=== PATIENT | male | born 1970 | race Caucasian/White ===

== ENCOUNTER 2019-07-20 15:58 | Outpatient (CLI) | payer BC, SELFPAY ==
--- NOTE | 2019-07-24 06:54 | ONC FU_ITS ---
Dr. Garibay Patient Follow-Up Note Patient: Tam Carnes Unit #: [id number]: 1970 Dicatated By: Kavon Garibay M.D.Date of Visit:Jul 20, 2019 Onc Med Follow-up/Prog Note Chief Complaint: Chronic lymphocytic leukemia. History of Present Illness: This is a 48 year-old man with chronic lymphocytic leukemia, Weaver stage I, initially diagnosed in October 2015. He had presented with gradually increasing leukocytosis noted on his regular employment screening lab studies. His CBC on 10/04/2015 showed normal hemoglobin at 14.7 g with hematocrit 45%. Red cell indices were normal. The white blood cell count was elevated at 17,000 with a differential showing 54% segs, 30% lymphs, 8% monocytes, 4% eosinophils, 4% basophils, and 3% reactive lymphs. Platelet count was normal at 288,000. He was referred to Dr. Cobb in [place]. CBC at that time showed similar findings. A whole blood flow cytometry showed a monoclonal kappa B-cell population with coexpression of CD5 and CD23. There was moderate kappa expression and dim CD20 expression. The findings were felt to be consistent with chronic lymphocytic leukemia. A FISH panel showed deletion of 13q14 and deletion of 11q22.3. There was no evidence of the 17p13 deletion. He was then seen at [facility]. His evaluation there included bone marrow aspiration/biopsy which confirmed CLL at 30% involvement with unmutated IGHV, deletion 11q by molecular, FISH, and cytogenetics, and deletion 13q by FISH. The IGHV was unmutated. He had a follow-up visit there with restaging CT scans on 04/27/2016. He was found to have multi-compartmental lymphadenopathy with the largest node measuring 4.1 cm. There was no hepatosplenomegaly. It was felt that he was approaching the need for treatment, and he ultimately did start ibrutinib 420 mg daily in August 2016. He had a very good clinical response. He has continued regular follow-up at [facility]. His other medical illnesses include hypertension and obstructive sleep apnea. He also has degenerative disease of the cervical spine. He is a nonsmoker. INTERIM HISTORY: He is seen for a followup visit. He has been feeling good generally other than he still feels extremely tired and he falls asleep very easily. His symptoms have not improve with CPAP. 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 He has good appetite. He has no fever or night sweats. He has no shortness of breath, cough, or chest pain. He has no GI or complaints. He has pain occasionally in his knees or calves. He has no other joint or bone pain. He has no focal neurologic symptoms. Medications: Allopurinol 1 Tablet (of 300 mg) Oral daily, HydroCHLOROthiazide 1 Tablet (of 25 mg) Oral daily, Ibrutinib 1 Tablet (of 420 mg) Capsule Oral daily, Levothyroxine Sodium 1 Tablet (of 88 mcg) Oral daily, Lisinopril 1 Tablet (of 10 mg) Oral daily Allergies: No Known Allergies. Review of Systems: Constitutional - His energy is low. He is tired most of the time and is able to fall asleep easily. 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 His appetite is good and his weight is stable. No fever, chills, hot flashes, or night sweats. ECOG score is 1, ENMT - He has sinus congestion/drainage. No mouth sores. No sore throat or difficulty swallowing, Hematologic/Lymphatic - No abnormal bruising or bleeding, Respiratory - No shortness of breath. No cough. No pleuritic pain or hemoptysis, Cardiovascular - No angina pain. No palpitations, Gastrointestinal - No nausea or vomiting. No heartburn or acid reflux. No diarrhea or constipation. No blood in the stool or black stools, Genitourinary (M) - No dysuria or hematuria. No urinary frequency. No urgency or incontinence, Musculoskeletal - He occasionally has pain in his knees and calves, Integumentary - No skin complications, Neurologic - No headache or dizziness. No numbness/paresthesias or other focal neurologic symptoms, Psychiatric - No anxiety or depression. No insomnia. Vital Signs: Performed on Jul 20, 2019 16:10 Height - 71.00 in Weight - 234.0 lbs (HIGH) BSA - 2.25 sq.m BMI - 32.64 (HIGH) Temperature - 97.6 F (LOW) Pulse - 81 /min Respiration - 20 /min BP - 130/84 mm(hg) O2 Sat - 96 % Pain - 0 Physical Examination: Constitutional - He looks good generally, Eyes - Sclerae nonicteric. Conjunctivae clear, ENMT - No lesions noted in the oral cavity, Hematologic/Lymphatic - There is no cervical, clavicular, or axillary adenopathy, Respiratory - Lungs are clear with good air movement bilaterally, Cardiovascular - Heart rhythm is regular. There is no murmur, gallop, or rub noted, Abdomen - Soft. Liver and spleen are not enlarged. There is no abdominal mass or ascites noted and there is no inguinal adenopathy, Extremities - No edema, Neurologic - No focal neurologic deficits noted. Lab/Imaging: Test performed on Jul 16, 2019 17:40 Uric Acid 4.0 mg/dL Glucose 119 mg/dL LDH, Total 182 IU/L BUN 18 mg/dL Creatinine 1.06 mg/dL Cr Clearance (Est) 126.56 mL/min Sodium 139 mmol/L Potassium 4.1 mmol/L Chloride 98 mmol/L CO2 31 mmol/L Calcium 9.2 mg/dL Protein, Total 7.0 g/dL Albumin 4.2 g/dL Bilirubin, Total 0.3 mg/dL Alkaline Phosphatase 73 IU/L AST (SGOT) 14 IU/L ALT (SGPT) 14 IU/L WBC 8.4 10^9/L RBC 4.80 10^12/L HGB 14.1 g/dL HCT 42.9 % MCV 89 fl MCH 29.4 pg MCHC 32.9 g/dL RDW 13.0 % Platelet Count 232 10^9/L MPV 11.5 fL Neutrophils (Gran) 4.87 10^9/L Lymphocytes 1.97 10^9/L Monocytes 1.06 10^9/L Eosinophils 0.33 10^9/L Basophils 0.18 10^9/L Manual Lymphocytes 23.3 % Manual Monocytes 12.6 % Manual Eosinophils 3.9 % Manual Basophils 2.1 % IGA 265 mg/dL IGG 1055 mg/dL IGM 53 mg/dL Impression: 1. Patient with chronic lymphocytic leukemia, Weaver stage I, initially diagnosed in October 2015. There was associated deletion 11q, deletion 13q, and unmutated IGHV. 2. He had extreme fatigue and hypersomnolence. This was felt to be related to the underlying leukemia, as there was no other apparent cause for it. His other medical illnesses include: 3. Obstructive sleep apnea, for which he is on CPAP. 4. Hypertension. 5. Degenerative disease of the cervical spine. He started treatment with ibrutinib 420 mg daily in August 2016. He has had a very good clinical response. He has been tolerating it well, though he has continued to have fatigue and excessive somnolence. Plan: He continues ibrutinib 420 mg daily and [facility]. I will see him again as needed. Signed By: Kavon Garibay M.D. <<Signature on File>>
== END 2019-07-20 15:59 | disposition home or self-care (01) ==
LOC: ONCMED 16:03
PROVIDERS: Family Provider Family Medicine; PCP Family Medicine; Visit Provider Internal Medicine Medical Oncology
DX: C91.10 Chronic lymphocytic leukemia of B-cell type not having achieved remission (principal); I10 Essential (primary) hypertension; G47.33 Obstructive sleep apnea (adult) (pediatric); M50.30 Other cervical disc degeneration, unspecified cervical region; Z79.899 Other long term (current) drug therapy
CPT/HCPCS: G0463

== ENCOUNTER 2019-12-22 07:27 | Outpatient (CLI) | payer BC, SELFPAY ==
[2019-12-22 08:54] LABS: Basophils # 0.1 10^3/uL (0.0-0.1); Basophils % 1.8 %; Eosinophils # 0.3 10^3/uL (0.0-0.8); Eosinophils % 3.9 %; Hematocrit 47.1 % (42.0-52.0); Hemoglobin 14.3 g/dL (11.7-16.6); Lymphocytes # 1.5 10^3/uL (0.8-4.8); Lymphocytes % 19.3 %; Mean Corpuscular HGB Conc 30.4 g/dL (30.0-36.0); Mean Corpuscular Hemoglobin 28.8 pg (28.0-34.0); Mean Platelet Volume 11.3 fL (7.4-10.4); Neutrophils % 62.7 %; Nucleated Red Blood Cells % 0 %; Platelet Count 195 10^3/cmm (130-400); Red Blood Count 4.96 10^6/uL (4.1-5.3); Red Cell Distribution Width 13.1 % (12.1-15.1); White Blood Count 7.9 10^3/uL (4.0-10.0)
[2019-12-22 09:04] LABS: Alanine Aminotransferase 19 U/L (0-41); Albumin Level 4.5 g/dL (3.5-5.2); Alkaline Phosphatase 73 IU/L (40-130); Anion Gap 14.3 (5-19); Aspartate Amino Transferase 20 U/L (0-40); Blood Urea Nitrogen 19 mg/dL (6-20); Calcium 9.7 mg/dL (8.5-10.5); Carbon Dioxide 28 mmol/L (22-29); Chloride 100 mmol/L (98-107); Globulin 2.7 g/dL (1.3-4.6); Glomerular Filtration Rate 89.3 mL/min (90-130); Glucose 107 mg/dL (65-115); Magnesium 2.4 mg/dL (1.7-2.3); Osmolality Calculated 283 mOsm/kg (285-295); Phosphorus 2.7 mg/dL (2.5-4.5); Potassium 4.3 mmol/L (3.5-5.1); Sodium 138 mmol/L (136-145); Total Bilirubin 0.7 mg/dL (0.15-1.2); Total Protein 7.2 g/dL (6.6-8.7); Uric Acid 4.2 mg/dL (3.4-7.0)
[2019-12-22 09:23] LABS: Lactate Dehydrogenase 246 U/L (135-225)
== END 2019-12-22 07:28 | disposition home or self-care (01) ==
LOC: LAB 07:30
PROVIDERS: PCP Family Medicine; Visit Provider Physician Assistant
DX: C91.10 Chronic lymphocytic leukemia of B-cell type not having achieved remission (principal)
CPT/HCPCS: 36415; 80053; 83615; 83735; 84100; 84550; 85025

== ENCOUNTER 2020-01-18 07:10 | Outpatient (CLI) | payer BC, SELFPAY ==
[2020-01-18 07:50] LABS: Basophils # 0.1 10^3/uL (0.0-0.1); Basophils % 0.7 %; Eosinophils # 0.2 10^3/uL (0.0-0.8); Hematocrit 46.2 % (42.0-52.0); Hemoglobin 14.5 g/dL (11.7-16.6); Lymphocytes # 1.3 10^3/uL (0.8-4.8); Mean Corpuscular HGB Conc 31.4 g/dL (30.0-36.0); Mean Corpuscular Hemoglobin 28.5 pg (28.0-34.0); Mean Corpuscular Volume 90.9 fL (80-94); Mean Platelet Volume 11.1 fL (7.4-10.4); Monocytes # 0.7 10^3/uL (0.2-0.9); Monocytes % 9.3 %; Neutrophils # 5.14 10^3/uL (1.8-7.7); Neutrophils % 69.6 %; Nucleated Red Blood Cells % 0 %; Platelet Count 226 10^3/cmm (130-400); Red Blood Count 5.08 10^6/uL (4.1-5.3); Red Cell Distribution Width 12.8 % (12.1-15.1); White Blood Count 7.4 10^3/uL (4.0-10.0)
[2020-01-18 08:23] LABS: Alanine Aminotransferase 19 U/L (0-41); Albumin Level 4.1 g/dL (3.5-5.2); Alkaline Phosphatase 85 IU/L (40-130); Anion Gap 13.9 (5-19); Aspartate Amino Transferase 16 U/L (0-40); Blood Urea Nitrogen 16 mg/dL (6-20); Calcium 8.2 mg/dL (8.5-10.5); Carbon Dioxide 25 mmol/L (22-29); Chloride 100 mmol/L (98-107); Globulin 3.3 g/dL (1.3-4.6); Glomerular Filtration Rate 102.3 mL/min (90-130); Glucose 95 mg/dL (65-115); Lactate Dehydrogenase 183 U/L (135-225); Osmolality Calculated 276 mOsm/kg (285-295); Potassium 3.9 mmol/L (3.5-5.1); Sodium 135 mmol/L (136-145); Total Bilirubin 0.5 mg/dL (0.15-1.2); Total Protein 7.4 g/dL (6.6-8.7)
== END 2020-01-18 07:11 | disposition home or self-care (01) ==
LOC: ONCMED 07:14
PROVIDERS: PCP Family Medicine; Visit Provider Internal Medicine Medical Oncology
DX: C91.10 Chronic lymphocytic leukemia of B-cell type not having achieved remission (principal); R19.7 Diarrhea, unspecified
CPT/HCPCS: 80053; 83615; 85025

== ENCOUNTER 2020-05-29 11:00 | Outpatient (CLI) | payer BC, SELFPAY ==
--- NOTE | 2020-06-03 09:31 | ONC FU_ITS ---
Dr. Garibay Patient Follow-Up Note Patient: Tam Carnes Unit #: [id number]: 1970 Dicatated By: Kavon Garibay M.D.Date of Visit:May 29, 2020 Onc Med Follow-up/Prog Note Chief Complaint: Chronic lymphocytic leukemia. History of Present Illness: This is a 49 year-old man with chronic lymphocytic leukemia, Weaver stage I, initially diagnosed in October 2015. He had presented with gradually increasing leukocytosis noted on his regular employment screening lab studies. His CBC on 10/04/2015 showed normal hemoglobin at 14.7 g with hematocrit 45%. Red cell indices were normal. The white blood cell count was elevated at 17,000 with a differential showing 54% segs, 30% lymphs, 8% monocytes, 4% eosinophils, 4% basophils, and 3% reactive lymphs. Platelet count was normal at 288,000. He was referred to Dr. Cobb in [place]. CBC at that time showed similar findings. A whole blood flow cytometry showed a monoclonal kappa B-cell population with coexpression of CD5 and CD23. There was moderate kappa expression and dim CD20 expression. The findings were felt to be consistent with chronic lymphocytic leukemia. A FISH panel showed deletion of 13q14 and deletion of 11q22.3. There was no evidence of the 17p13 deletion. He was then seen at [facility]. His evaluation there included bone marrow aspiration/biopsy which confirmed CLL at 30% involvement with deletion 11q by molecular, FISH, and cytogenetics, and he also had deletion 13q by FISH. The IGHV was unmutated. He had a follow-up visit there with restaging CT scans on 04/27/2016. He was found to have multi-compartmental lymphadenopathy with the largest node measuring 4.1 cm. There was no hepatosplenomegaly. He had biopsy proven extranodal involvement in the nasopharynx. He ultimately began treatment with ibrutinib 420 mg daily in August 2016. He had a very good clinical response. His ibrutinib was temporarily put on hold in March 2019 due to an episode of pericarditis. It resolved with conservative management, and he was able to restart treatment. He has had no other complications. His other medical illnesses include hypertension and obstructive sleep apnea. He also has degenerative disease of the cervical spine. He is a nonsmoker. INTERIM HISTORY: He is seen for an unplanned visit. He complains that for the past week he has been having pain in his left lateral chest area which comes and goes. The pain is more severe when he takes a real deep breath. It is not aggravated by lying flat. He does not have associated shortness of breath or cough, and he has not been having fever, chills, or night sweats. He has started treatment empirically with Augmentin and with ibuprofen in combination with colchicine. Medications: Allopurinol 1 Tablet (of 300 mg) Oral daily, Augmentin 1 Tablet (of 875-125 mg) Oral q 8 hours for 14 days, Colcrys 1 Tablet (of 0.6 mg) Oral b.i.d. for 14 days, HydroCHLOROthiazide 1 Tablet (of 25 mg) Oral daily, Ibrutinib 1 Tablet (of 420 mg) Capsule Oral daily, Ibuprofen 1 Capsule (of 600 mg) Oral q 8 hours PRN, Levothyroxine Sodium 1 Tablet (of 88 mcg) Oral daily, Lisinopril 1 Tablet (of 10 mg) Oral daily, ValACYclovir HCl 1 Tablet (of 500 mg) Oral daily, Vitamin C 1 Tablet (of 1000 mg) Tablet, chewable Oral daily Allergies: No Known Allergies. Review of Systems: Constitutional - He has good energy and he has normal activity. Appetite is good and weight is stable. No fever or night sweats. ECOG score is 0, ENMT - No sinus congestion/drainage. No mouth sores. No sore throat or difficulty swallowing, Hematologic/Lymphatic - He has soome bruising. No other bleeding, Respiratory - No shortness of breath or cough. He has pleuritic pain in the left chest. No hemoptysis, Cardiovascular - No angina pain. No palpitations, Gastrointestinal - No nausea or vomiting. No heartburn or acid reflux. No diarrhea or constipation. No blood in the stool or black stools, Genitourinary (M) - No dysuria or hematuria. No urinary frequency. No urgency or incontinence, Musculoskeletal - No joint or bone pain, Integumentary - No skin rash, Neurologic - No headache or dizziness. No numbness or tingling. No other focal neurologic symptoms, Psychiatric - No anxiety or depression. No insomnia. Vital Signs: Performed on May 29, 2020 08:31 Height - 71.00 in Weight - 238.0 lbs (HIGH) BSA - 2.27 sq.m BMI - 33.19 (HIGH) Temperature - 97.4 F (LOW) Pulse - 85 /min Respiration - 20 /min BP - 156/85 mm(hg) (HIGH) O2 Sat - 99 % Pain - 0 Physical Examination: Constitutional - He looks good generally, Eyes - Sclerae nonicteric. Conjunctivae clear, ENMT - No lesions noted in the oral cavity, Hematologic/Lymphatic - There is no cervical, clavicular, or axillary adenopathy, Respiratory - Lungs sound clear and he has good air movement bilaterally. In particular, there is no pleural rub noted, Cardiovascular - Heart rhythm is regular. There is no murmur or gallop noted and there is no pericardial rub noted, Abdomen - Soft. Liver and spleen are not enlarged. There is no abdominal mass or ascites noted and there is no inguinal adenopathy, Extremities - No edema, Neurologic - No focal neurologic deficits noted. Lab/Imaging: Test performed on Jan 18, 2020 07:33 LDH (Total) 183 U/L Sodium 135 mmol/L Potassium 3.9 mmol/L Chloride 100 mmol/L CO2 25 mmol/L Anion Gap 13.9 BUN 16 mg/dL Creatinine 0.8 mg/dL Cr Clearance (Est) 165.8500 mL/min eGFR 102.3 mL/min Glucose 95 mg/dL Calcium 8.2 mg/dL Protein, Total 7.4 g/dL Albumin 4.1 g/dL Globulin 3.3 g/dL Bilirubin, Total 0.5 mg/dL ALT (SGPT) 19 U/L AST (SGOT) 16 U/L Alkaline Phosphatase 85 IU/L WBC 7.4 10 3/uL RBC 5.08 10 6/uL HGB 14.5 g/dL HCT 46.2 % MCV 90.9 fL MCH 28.5 pg MCHC 31.4 g/dL RDW 12.8 % Platelet Count 226 10 3/cmm MPV 11.1 fL Neutrophils 5.14 10 3/uL Lymphocytes 1.3 10 3/uL Monocytes 0.7 10 3/uL Eosinophils 0.2 10 3/uL Basophils 0.1 10 3/uL Neutrophil % 69.6 % Lymphocyte % 18.0 % Monocyte % 9.3 % Eosinophil % 2.0 % Basophils % 0.7 % NRBC % 0 % Impression: 1. Patient with chronic lymphocytic leukemia, Weaver stage I, initially diagnosed in October 2015. There was associated deletion 11q, deletion 13q, and unmutated IGHV. 2. He had extreme fatigue and hypersomnolence. This was felt to be related to the underlying leukemia, as there was no other apparent cause for it. His other medical illnesses include: 3. Obstructive sleep apnea, for which he is on CPAP. 4. Hypertension. 5. Degenerative disease of the cervical spine. He started treatment with ibrutinib 420 mg daily in August 2016. He had a very good clinical response. In March 2019 his treatment was temporarily put on hold due to an episode of pericarditis. It resolved with conservative management, and he was able to restart treatment. He has had no other complications. He presents now with recurrence of pleuritic pain in the left chest. He has started empiric therapy with Augmentin and with ibuprofen in combination with colchicine. At this point the cause is uncertain. His EKG shows some nonspecific T wave abnormalities in the inferior leads and in V6, but there is no ST elevation or other findings to suggest pericarditis. Plan: For now he will continue the ibrutinib along with the other medications. If his symptoms persist, I will put the ibrutinib on hold and I will get him scheduled for chest x-ray and echocardiogram. Signed By: Kavon Garibay M.D. <<Signature on File>>
== END 2020-05-29 11:01 | disposition home or self-care (01) ==
LOC: ONCMED 06-03 08:49
PROVIDERS: PCP Family Medicine; Visit Provider Internal Medicine Medical Oncology
DX: C91.10 Chronic lymphocytic leukemia of B-cell type not having achieved remission (principal); R53.83 Other fatigue; G47.10 Hypersomnia, unspecified; G47.33 Obstructive sleep apnea (adult) (pediatric); I10 Essential (primary) hypertension; M50.30 Other cervical disc degeneration, unspecified cervical region; Z79.899 Other long term (current) drug therapy
CPT/HCPCS: G0463

== ENCOUNTER 2020-05-31 13:28 | Outpatient (CLI) | payer BC, SELFPAY ==
--- NOTE | 2020-05-31 13:30 | USCV_ITS ---
Tam Carnes Age: 49 Gender: M : 1970 Exam Date: 05/31/2020 14:04 Ordering Phys: Jazmin Valdez Technologist: Madison Ryan Exam Location: [facility] [place] Indication: pericarditis BP: 137 / 85 HR: 88 Rhythm: Sinus Technical Quality: Adequate MEASUREMENTS (Male / Female) Normal Values 2D ECHO LV Diastolic Diameter PLAX 5.5 cm 4.2 - 5.9 / 3.9 - 5.3 cm LV Systolic Diameter PLAX 3.4 cm IVS Diastolic Thickness 1.1 cm 0.6 - 1.0 / 0.6 - 0.9 cm IVS Systolic Thickness 1.2 cm LVPW Diastolic Thickness 0.9 cm 0.6 - 1.0 / 0.6 - 0.9 cm LVPW Systolic Thickness 1.7 cm LVOT Diameter 2.1 cm LV Ejection Fraction 2D Teich 68.3 % LV Ejection Fraction MOD 2C 57.9 % LV Ejection Fraction 2C AL 56.8 % LA Diameter 3.5 cm LA Width 3.1 cm LA Height 3.5 cm RA Width 2.8 cm RA Height 2.4 cm Aorta at Sinotubular Diameter 2.9 cm M-MODE LV Diastolic Diameter MM 4.8 cm 4.2 - 5.9 / 3.9 - 5.3 cm LV Systolic Diameter MM 3.1 cm LV Ejection Fraction MM Teich 66.5 % IVS Diastolic Thickness MM 1.1 cm 0.6 - 1.0 / 0.6 - 0.9 cm IVS Systolic Thickness MM 1.3 cm LVPW Diastolic Thickness MM 1.2 cm 0.6 - 1.0 / 0.6 - 0.9 cm LVPW Systolic Thickness MM 1.0 cm RV Diastolic Diameter MM 1.2 cm Aortic Annulus Diameter 3.6 cm LA Ao Ratio MM 1.1 MV E Point Septal Separation 0.4 cm DOPPLER AV Peak Velocity 142.0 cm/s LVOT Peak Velocity 92.0 cm/s AV Area Cont Eq vti 2.1 cm squared AV Area Cont Eq pk 2.2 cm squared MV Area PHT 3.9 cm squared Mitral E to A Ratio 0.8 MV E' Velocity 45.0 cm/s Mitral E to MV E' Ratio 7.5 Mitral E to LV E' Lateral Ratio 7.0 Mitral E to LV E' Septal Ratio 8.0 TR Peak Velocity 254.8 cm/s TR Peak Gradient 26.0 mmHg TR Mean Velocity 169.3 cm/s TR Mean Gradient 13.6 mmHg TR Velocity Time Integral 54.8 cm TV Peak E Velocity 73.0 cm/s Right Atrial Pressure 3.0 mmHg Pulmonary Artery Systolic Pressu 29.0 mmHg PV Peak Velocity 65.0 cm/s RV Acceleration Time 0.2 s RV Ejection Time 0.3 s RV AcT/ET 0.6 FINDINGS Left Ventricle Normal left ventricular cavity size. Normal left ventricular systolic function. No regional wall motion abnormalities. Left ventricular ejection fraction is estimated at 60 %. Grade I/IV diastolic dysfunction (abnormal relaxation filling pattern), normal to mildly elevated filling pressures. Right Ventricle The right ventricle is normal in size and function. Right Atrium The right atrium is normal in size. Left Atrium The left atrium is normal in size. Mitral Valve Mildly thickened mitral valve. No mitral valve stenosis. Trace mitral valve regurgitation. Aortic Valve Moderate aortic valve calcification. No aortic valve stenosis. Trace aortic valve regurgitation. Tricuspid Valve Structurally normal tricuspid valve without significant stenosis or regurgitation. Pulmonary artery systolic pressure is normal. Pulmonic Valve Structurally normal pulmonic valve without significant stenosis. There is no pulmonic regurgitation. Pericardium Normal pericardium without effusion. Aorta Normal ascending aorta dimension. CONCLUSIONS 1-Normal left ventricular cavity size. Normal left ventricular systolic function. No regional wall motion abnormalities. Left ventricular ejection fraction is estimated at 60 %. Grade I/IV diastolic dysfunction (abnormal relaxation filling pattern), normal to mildly elevated filling pressures. 2-No significant valve abnormalities. 3-There is no pericardial effusion. 4-Pulmonary artery systolic pressure is within normal limits. 5-Right atrial pressure is around 5 mm of mercury. 6-There are no prior echocardiogram studies to compare. Carmen Martin MD (Electronically Signed) Final Date: 31 May 2020 16:35 S
== END 2020-05-31 13:29 | disposition home or self-care (01) ==
LOC: RAD 13:32
PROVIDERS: PCP Family Medicine; Visit Provider Nurse Practitioner
DX: I32 Pericarditis in diseases classified elsewhere (principal)
CPT/HCPCS: 93306

== ENCOUNTER 2020-06-17 08:22 | Outpatient (CLI) | payer BC, SELFPAY ==
[2020-06-17 08:54] LABS: Basophils # 0.2 10^3/uL (0.0-0.1); Basophils % 1.9 %; Eosinophils # 1.7 10^3/uL (0.0-0.8); Eosinophils % 16.9 %; Hematocrit 43.1 % (42.0-52.0); Hemoglobin 13.7 g/dL (11.7-16.6); Lymphocytes # 0.9 10^3/uL (0.8-4.8); Lymphocytes % 9.3 %; Mean Corpuscular HGB Conc 31.8 g/dL (30.0-36.0); Mean Corpuscular Hemoglobin 29.1 pg (28.0-34.0); Mean Corpuscular Volume 91.5 fL (80-94); Mean Platelet Volume 9.8 fL (7.4-10.4); Monocytes # 0.9 10^3/uL (0.2-0.9); Monocytes % 8.8 %; Neutrophils % 62.8 %; Nucleated Red Blood Cells % 0 %; Platelet Count 380 10^3/cmm (130-400); Red Blood Count 4.71 10^6/uL (4.1-5.3); Red Cell Distribution Width 12.8 % (12.1-15.1); White Blood Count 9.9 10^3/uL (4.0-10.0)
== END 2020-06-17 08:23 | disposition home or self-care (01) ==
PROVIDERS: PCP Family Medicine; Visit Provider Nurse Practitioner Family
DX: Z87.19 Personal history of other diseases of the digestive system (principal)
CPT/HCPCS: 85025

== ENCOUNTER 2020-06-17 10:02 | Outpatient (CLI) | payer BC, SELFPAY ==
--- NOTE | 2020-06-17 10:09 | CT_ITS ---
WS: [id number] CT scan of the chest with IV contrast, additional two-dimensional coronal and sagittal reconstruction was performed. 06/17/2020 Clinical Data: PNEUMONIA Comparison: PA and lateral chest, 05/17/2018. DLP: 1056.[address] scans at [facility] use at least one of these dose optimization techniques: automat ed exposure control; mA and/or kV adjustment per patient size (includes targeted exams where dose is matched to clinical indication); or iterative reconstruction. Findings: There is a moderate left pleural effusion with partial left lower lobe atelectasis. No nodules or mas ses are seen. The right lung is clear. No pneumonia or pneumothorax is present. There is no subcutane ous emphysema. No rib fractures are seen. The heart size is normal with no pericardial effusion. The pulmonary arterial system and thoracic aorta demonstrate no abnormalities or dilatations. There is no axillary or significant mediastinal adenopathy. There is a small hiatal hernia. The upper abdomen no abnormalities.0 CT/CT chest w con* [id number] Impression: Moderate left pleural effusion with partial left lower lobe atelectasis.
[2020-06-17] MEDS: iohexol 300 mg/mL 100 mL Btl IV (10:31)
== END 2020-06-17 10:03 | disposition home or self-care (01) ==
LOC: RADWPI 10:08
PROVIDERS: PCP Family Medicine; Visit Provider Nurse Practitioner Family
DX: J18.9 Pneumonia, unspecified organism (principal); J90 Pleural effusion, not elsewhere classified; J98.11 Atelectasis
CPT/HCPCS: 71260; Q9967

== ENCOUNTER 2020-07-22 09:22 | Outpatient (CLI) | payer BC, SELFPAY ==
[2020-07-22 10:20] LABS: Basophils # 0.1 10^3/uL (0.0-0.1); Basophils % 1.7 %; Eosinophils # 0.5 10^3/uL (0.0-0.8); Eosinophils % 6.5 %; Hematocrit 45.8 % (42.0-52.0); Hemoglobin 14.7 g/dL (11.7-16.6); Lymphocytes # 1.5 10^3/uL (0.8-4.8); Lymphocytes % 22.2 %; Mean Corpuscular HGB Conc 32.1 g/dL (30.0-36.0); Mean Corpuscular Hemoglobin 29.2 pg (28.0-34.0); Mean Corpuscular Volume 90.9 fL (80-94); Mean Platelet Volume 9.4 fL (7.4-10.4); Monocytes # 0.7 10^3/uL (0.2-0.9); Monocytes % 9.4 %; Neutrophils # 4.08 10^3/uL (1.8-7.7); Neutrophils % 59.5 %; Nucleated Red Blood Cells % 0 %; Platelet Count 324 10^3/cmm (130-400); Red Blood Count 5.04 10^6/uL (4.1-5.3); Red Cell Distribution Width 12.9 % (12.1-15.1); White Blood Count 6.9 10^3/uL (4.0-10.0)
[2020-07-22 15:04] LABS: Alanine Aminotransferase 24 U/L (0-41); Albumin Level 4.5 g/dL (3.5-5.2); Alkaline Phosphatase 103 IU/L (40-130); Anion Gap 12.8 (5-19); Aspartate Amino Transferase 16 U/L (0-40); Blood Urea Nitrogen 20 mg/dL (6-20); Carbon Dioxide 30 mmol/L (22-29); Chloride 101 mmol/L (98-107); Globulin 3.3 g/dL (1.3-4.6); Glomerular Filtration Rate 79.1 mL/min (90-130); Glucose 92 mg/dL (65-115); Osmolality Calculated 290 mOsm/kg (285-295); Potassium 4.8 mmol/L (3.5-5.1); Sodium 139 mmol/L (136-145); Total Bilirubin 0.2 mg/dL (0.15-1.2); Total Protein 7.8 g/dL (6.6-8.7); Uric Acid 4.6 mg/dL (3.4-7.0)
[2020-07-22 16:05] LABS: Immunoglobulin IGA 273 mg/dL (70-400); Immunoglobulin IGG 1178 mg/dL (700-1600); Immunoglobulin IGM 67 mg/dL (40-230)
--- NOTE | 2020-07-30 07:37 | ONC FU_ITS ---
Dr. Garibay Patient Follow-Up Note Patient: Tam Carnes Unit #: [id number]: [id number] Dicatated By: Kavon Garibay M.D.Date of Visit:Jul 22, 2020 Onc Med Follow-up/Prog Note Chief Complaint: Chronic lymphocytic leukemia. History of Present Illness: This is a 49 year-old man with chronic lymphocytic leukemia, Weaver stage I, initially diagnosed in October 2015. He had presented with gradually increasing leukocytosis noted on his regular employment screening lab studies. His CBC on 10/04/2015 showed normal hemoglobin at 14.7 g with hematocrit 45%. Red cell indices were normal. The white blood cell count was elevated at 17,000 with a differential showing 54% segs, 30% lymphs, 8% monocytes, 4% eosinophils, 4% basophils, and 3% reactive lymphs. Platelet count was normal at 288,000. He was referred to Dr. Cobb in [place]. CBC at that time showed similar findings. A whole blood flow cytometry showed a monoclonal kappa B-cell population with coexpression of CD5 and CD23. There was moderate kappa expression and dim CD20 expression. The findings were felt to be consistent with chronic lymphocytic leukemia. A FISH panel showed deletion of 13q14 and deletion of 11q22.3. There was no evidence of the 17p13 deletion. He was then seen at [facility]. His evaluation there included bone marrow aspiration/biopsy which confirmed CLL at 30% involvement with deletion 11q by molecular, FISH, and cytogenetics, and he also had deletion 13q by FISH. The IGHV was unmutated. He had a follow-up visit there with restaging CT scans on 04/27/2016. He was found to have multi-compartmental lymphadenopathy with the largest node measuring 4.1 cm. There was no hepatosplenomegaly. He had biopsy proven extranodal involvement in the nasopharynx. He ultimately began treatment with ibrutinib 420 mg daily in August 2016. He had a very good clinical response. His ibrutinib was temporarily put on hold in March 2019 due to an episode of pericarditis. It resolved with conservative management, and he was able to restart treatment. He has had no other complications. His other medical illnesses include hypertension and obstructive sleep apnea. He also has degenerative disease of the cervical spine. He is a nonsmoker. INTERIM HISTORY: I had seen him for an unplanned visit on 05/29/2020. He had developed pleuritic pain in the left chest. EKG at that time showed no acute ST/Twave changes. I did opt to have him stop the ibrutinib. Echocardiogram on 05/31/2020 showed grade I/IV diastolic dysfunction. There was no pericardial effusion or other abnormal findings. Chest CT on 06/23/2020 showed moderate left pleural effusion with partial left lower lobe atelectasis. There was no pulmonary infiltrate or mass lesion noted and there was no lymphadenopathy reported. He ultimately returned to [facility] for further evaluation. Thus far he has remained off treatment for the CLL, but they may be changing him to acalabrutinib. He is seen for a followup visit. He has been off work to minimize his risk of exposure to valera virus. He has fatigue, which is chronic. He still has normal activity. His ECOG score is 0. He has good appetite and his weight has been stable. He has no fever or night sweats. He has some shortness of breath, but his breathing is better now. He has had no chest pain for the past 2 weeks. He has no GI or complaints. He says his legs hurt when he was first coming off the ibrutinib, that has resolved. He has no other joint or bone pain. He has headache about once a week. He has no focal neurologic symptoms. He still reports having easy bruising. Medications: Allopurinol 1 Tablet (of 300 mg) Oral daily, Augmentin 1 Tablet (of 875-125 mg) Oral q 8 hours for 14 days, Calquence 200 mg Capsule Oral daily, Colcrys 1 Tablet (of 0.6 mg) Oral b.i.d. for 14 days, HydroCHLOROthiazide 1 Tablet (of 25 mg) Oral daily, Ibuprofen 1 Capsule (of 600 mg) Oral q 8 hours PRN, Levothyroxine Sodium 1 Tablet (of 88 mcg) Oral daily, Lisinopril 1 Tablet (of 20 mg) Oral daily, ValACYclovir HCl 1 Tablet (of 500 mg) Oral daily, Vitamin C 1 Tablet (of 1000 mg) Tablet, chewable Oral daily Allergies: No Known Allergies. Vital Signs: Performed on Jul 22, 2020 13:01 Height - 71.00 in Weight - 240 lbs (HIGH) BSA - 2.28 sq.m BMI - 33.47 (HIGH) Temperature - 97.6 F (LOW) Pulse - 100 /min Respiration - 18 /min BP - 141/85 mm(hg) (HIGH) O2 Sat - 99 % Pain - 0 Fatigue - 1 Physical Examination: Constitutional - He looks good generally, Eyes - Sclerae nonicteric. Conjunctivae clear, ENMT - No lesions noted in the oral cavity, Hematologic/Lymphatic - There is no cervical, clavicular, or axillary adenopathy, Respiratory - Lungs sound clear with good air movement bilaterally, Cardiovascular - Heart rhythm is regular. There is a II/ systolic murmur. There is no gallop or rub noted, Abdomen - Soft. Liver and spleen are not enlarged. There is no abdominal mass or ascites noted and there is no inguinal adenopathy, Extremities - No edema, Integumentary - No skin eruption, Neurologic - No focal neurologic deficits noted. Lab/Imaging: CBC shows hemoglobin 14.7 g, white blood cell count 6900, and platelet count 324,000. The differential includes 59% neutrophils, 22% lymphocytes, 9% monocytes, 6% eosinophils, and 1% basophils. Comprehensive metabolic profile is unremarkable. The renal function is normal and bilirubin and liver enzymes are normal. Problem List: 1. Chronic lymphocytic leukemia, Weaver stage I, initially diagnosed in October 2015. There was associated deletion 11q, deletion 13q, and unmutated IGHV. 2. He had extreme fatigue and hypersomnolence. This was felt to be related to the underlying leukemia, as there was no other apparent cause for it. 3. Obstructive sleep apnea, for which he is on CPAP. 4. Hypertension. 5. Degenerative disease of the cervical spine. Problems Addressed with this Encounter and Plan: 1. Chronic lymphocytic leukemia, Weaver stage I, initially diagnosed in October 2015. There was associated deletion 11q, deletion 13q, and unmutated IGHV. He had extreme fatigue and hypersomnolence, presuemed to be related to the CLL, as there was no other apparent cause for it. He started treatment with ibrutinib 420 mg daily in August 2016. He had a very good clinical response. In March 2019 his treatment was temporarily put on hold due to an episode of pericarditis. It resolved with conservative management, and he was able to restart treatment. He had otherwise tolerated treatment well. In May 2020 had presented with pleuritic pain in the left chest. He ultimately was found to have left pleural effusion. I am not certain that a specific cause was determined, but the ibrutinib was discontinued. He does appear to be showing symptomatic improvement. For now he will remain off treatment for the CLL, but it is anticipated that he will be transitioning to acalabrutinib. 2. He has potential for immunosuppression associated with the CLL, and he would be at increased risk for more severe illness with COVID-19. As such, he has been on restricted activity. He did receive his initial COVID-19 vaccination on 07/17/2020. He has recommended to continue his activity restriction, to include staying off work, until 2 weeks after his second vaccination, which would be due on or about 08/14/2020. Signed By: Kavon Garibay M.D. <<Signature on File>>
== END 2020-07-22 09:23 | disposition home or self-care (01) ==
PROVIDERS: PCP Family Medicine; Visit Provider Physician Assistant
DX: C91.10 Chronic lymphocytic leukemia of B-cell type not having achieved remission (principal); R53.83 Other fatigue; R40.0 Somnolence; G47.33 Obstructive sleep apnea (adult) (pediatric); I10 Essential (primary) hypertension; M50.30 Other cervical disc degeneration, unspecified cervical region; Z79.899 Other long term (current) drug therapy
CPT/HCPCS: 36415; 80053; 82784; 84550; 85025; 99214

== ENCOUNTER 2021-08-25 08:24 | Outpatient (CLI) | payer BC, SELFPAY ==
[2021-08-25 08:40] VITALS: BP 132/76; PULSE 66; RESP 18; TEMP 36.8; O2SAT 98
[2021-08-25 09:20] VITALS: BP 119/75; PULSE 76; RESP 18; TEMP 37.2; O2SAT 97
[2021-08-25 09:55] VITALS: BP 124/74; BP 124/76; PULSE 70; RESP 18; TEMP 37; O2SAT 97
== END 2021-08-25 08:25 | disposition home or self-care (01) ==
PROVIDERS: PCP Family Medicine; Visit Provider Internal Medicine Medical Oncology
DX: U07.1 COVID-19 (principal); Z79.899 Other long term (current) drug therapy
CPT/HCPCS: 96372

== ENCOUNTER 2022-08-26 12:11 | Outpatient (CLI) | payer BC, SELFPAY ==
[2022-08-26 12:50] LABS: Basophils # 0.1 10^3/uL (0.0-0.1); Basophils % 1.5 %; Eosinophils # 0.2 10^3/uL (0.0-0.8); Eosinophils % 2.3 %; Hematocrit 44.1 % (42.0-52.0); Hemoglobin 14.2 g/dL (11.7-16.6); Lymphocytes # 1.4 10^3/uL (0.8-4.8); Mean Corpuscular HGB Conc 32.2 g/dL (30.0-36.0); Mean Corpuscular Hemoglobin 29.3 pg (28.0-34.0); Mean Corpuscular Volume 90.9 fl (80-94); Mean Platelet Volume 10.6 fL (7.4-10.4); Monocytes # 0.8 10^3/uL (0.2-0.9); Monocytes % 9.4 %; Neutrophils # 5.63 10^3/uL (1.8-7.7); Neutrophils % 69.4 %; Nucleated Red Blood Cells % 0 %; Platelet Count 255 10^3/cmm (130-400); Red Blood Count 4.85 10^6/uL (4.1-5.3); Red Cell Distribution Width 13.2 % (12.1-15.1); White Blood Count 8.1 10^3/uL (4.0-10.0)
[2022-08-26 12:55] LABS: Erythrocyte Sedimentation Rate 2 mm/hr (0-10)
[2022-08-26 13:14] LABS: Alanine Aminotransferase 15 U/L (0-41); Albumin Level 4.1 g/dL (3.5-5.2); Alkaline Phosphatase 83 U/L (40-130); Anion Gap 12.8 (5-19); Aspartate Amino Transferase 14 U/L (0-40); Blood Urea Nitrogen 16 mg/dL (6-20); C Reactive Protein 5.4 mg/L (0.0-4.9); Calcium 9.2 mg/dL (8.5-10.5); Carbon Dioxide 28 mmol/L (22-29); Chloride 102 mmol/L (98-107); Globulin 2.9 g/dL (1.3-4.6); Glomerular Filtration Rate 88.6 mL/min (90-130); Glucose 92 mg/dL (65-115); Lactate Dehydrogenase 183 U/L (135-225); Osmolality Calculated 289 mOsm/kg (285-295); Potassium 3.8 mmol/L (3.5-5.1); Sodium 139 mmol/L (136-145); Total Bilirubin 0.3 mg/dL (0.15-1.2)
== END 2022-08-26 12:12 | disposition home or self-care (01) ==
LOC: LAB 12:14
PROVIDERS: PCP Family Medicine; Visit Provider Internal Medicine Medical Oncology
DX: C91.10 Chronic lymphocytic leukemia of B-cell type not having achieved remission (principal)
CPT/HCPCS: 36415; 80053; 83615; 85025; 85651; 86140

== ENCOUNTER → 2023-07-06 18:24 | Outpatient (BNVA) | payer BC, SELFPAY | PROVIDERS: PCP Family Medicine; Visit Provider Nurse Practitioner | DX: J06.9 Acute upper respiratory infection, unspecified (principal) | CPT/HCPCS: 87400; 87426 ==